=== PATIENT | male | born 1990 | race American Indian/Alaskan Native ===

== ENCOUNTER 2017-02-16 08:19 | Emergency (ER) | payer SELFPAY ==
[2017-02-16 09:11] LABS: Basophils % (Auto) 0.4 % (0.0-1.8); Eosinophils % (Auto) 0.7 % (0.0-4.3); Hematocrit 41.4 % (35.5-45.6); Hemoglobin 13.8 gm/dl (11.8-15.2); Mean Corpuscular HGB Conc 33 % (32-34); Mean Corpuscular Hemoglobin 30 pg (28-32); Mean Corpuscular Volume 89 fl (84-94); Platelet Count 194 K/mm3 (140-440); Red Blood Count 4.64 M/mm3 (3.65-5.03); Red Cell Distribution Width 13.7 % (13.2-15.2); White Blood Count 8.1 K/mm3 (4.5-11.0)
[2017-02-16 09:23] LABS: Alanine Aminotransferase 16 units/L (7-56); Albumin 4.1 g/dL (3.9-5); Albumin/Globulin Ratio 1.5 %; Alkaline Phosphatase 56 units/L (35-129); Anion Gap 17 mmol/L; BUN/Creatinine Ratio 10; Blood Urea Nitrogen 8 mg/dL (9-20); Calcium 9.2 mg/dL (8.4-10.2); Carbon Dioxide 24 mmol/L (22-30); Chloride 103.5 mmol/L (98-107); Glucose 91 mg/dL (75-100); Potassium 3.6 mmol/L (3.6-5.0); Sodium 141 mmol/L (137-145); Total Protein 6.9 g/dL (6.3-8.2)
--- NOTE | 2017-02-16 09:27 | Emergency Department Report ---
ED General Adult HPI - General Chief complaint: Chest Pain Stated complaint: CARDIAC ARRYTHMIA Time Seen by Provider: 02/16/17 09:17 Source: patient, EMS, RN notes reviewed Mode of arrival: Stretcher Limitations: No Limitations - History of Present Illness Initial comments: This is a 26-year-old male who was previously unknown to this provider. Patient reports a past medical history of ventricular tachycardia, wears a cardiac life asked, Recall the name of his medications. Patient is brought to the hospital by EMS for complaint of chest palpitations. Patient having frequent premature ventricular contractions as per EMS documentation. Patient denies headache, neck pain, chest pain, abdominal pain, shortness of breath, recent toxic ingestions. He further reports that his medications and life vest are in a hotel room. He does not have the ability to send someone to get his belongings. EKG has to go get his belongings. His symptoms do not have exacerbating or relieving factors. He indicates "I think I have V. tach." -: Gradual Consistency: intermittent Improves with: none Worsens with: none Associated Symptoms: denies: confusion, cough, diaphoresis, headaches, loss of appetite, malaise, nausea/vomiting, rash, shortness of breath, syncope, weakness - Related Data Allergies Allergy/AdvReac Type Severity Reaction Status Date / Time No Known Allergies Allergy Unverified 02/16/17 08:43 ED Review of Systems ROS: Stated complaint: CARDIAC ARRYTHMIA Other details as noted in HPI Constitutional: denies: fever Eyes: denies: eye discharge ENT: denies: epistaxis Respiratory: denies: cough Cardiovascular: palpitations Gastrointestinal: denies: vomiting Genitourinary: as per HPI Musculoskeletal: as per HPI Skin: as per HPI Neurological: as per HPI Psychiatric: as per HPI ED Past Medical Hx - Social History Smoking Status: Former Smoker Substance Use Type: None ED Physical Exam - General Limitations: No Limitations General appearance: alert, in no apparent distress, other (patient in no distress, testing and playing on a cellular phone) - Head Head exam: Present: atraumatic, normocephalic - Eye Eye exam: Present: normal appearance, EOMI, other (visual acuity intact to finger counting, color perception, reading at a close distance). Absent: nystagmus - ENT ENT exam: Present: normal exam, normal orophraynx, mucous membranes moist, normal external ear exam - Neck Neck exam: Present: normal inspection, full ROM - Respiratory Respiratory exam: Present: normal lung sounds bilaterally. Absent: respiratory distress - Cardiovascular Cardiovascular Exam: Present: regular rate, tachycardia, irregular rhythm, normal heart sounds. Absent: systolic murmur, diastolic murmur, rubs, gallop - GI/Abdominal GI/Abdominal exam: Present: soft, normal bowel sounds. Absent: distended, tenderness, guarding, rebound, rigid - Rectal Rectal exam: Present: deferred - Extremities Exam Extremities exam: Present: normal inspection, full ROM, normal capillary refill. Absent: pedal edema, joint swelling, calf tenderness - Back Exam Back exam: Present: normal inspection, full ROM. Absent: tenderness, CVA tenderness (R), paraspinal tenderness, vertebral tenderness - Neurological Exam Neurological exam: Present: alert, oriented X3, normal gait, other (Extraocular movements intact. Tongue midline. No facial droop. Facial sensation intact to light touch in the V1, V2, V3 distribution bilaterally. 5 and 5 strength in 4 extremities.. Sensation is intact to light touch in 4 extremities.). Absent : motor sensory deficit - Psychiatric Psychiatric exam: Present: normal affect, normal mood. Absent: anxious - Skin Skin exam: Present: warm, dry, intact, normal color. Absent: rash ED Course Vital Signs 02/16/17 02/16/17 02/16/17 08:31 08:38 08:45 Temperature 97.9 F Pulse Rate 88 67 64 Respiratory 8 L Rate Blood Pressure 134/87 139/89 O2 Sat by Pulse 99 100 Oximetry 02/16/17 02/16/17 02/16/17 09:01 09:15 09:21 Temperature Pulse Rate 59 L 125 H Respiratory 13 11 L 18 Rate Blood Pressure 142/90 139/93 O2 Sat by Pulse 100 99 99 Oximetry 02/16/17 02/16/17 09:31 09:45 Temperature Pulse Rate 73 122 H Respiratory 11 L 14 Rate Blood Pressure 139/93 134/96 O2 Sat by Pulse 99 99 Oximetry ED Medical Decision Making - Lab Data Result diagrams: 02/16/17 08:50 02/16/17 08:53 Vital Signs 02/16/17 02/16/17 08:38 09:21 Temperature 97.9 F Pulse Rate 67 Respiratory 18 Rate Blood Pressure 134/87 O2 Sat by Pulse 99 99 Oximetry Lab Results 02/16/17 02/16/17 Range/Units 08:50 08:53 WBC 8.1 (4.5-11.0) K/mm3 RBC 4.64 (3.65-5.03) M/mm3 Hgb 13.8 (11.8-15.2) gm/dl Hct 41.4 (35.5-45.6) % MCV 89 (84-94) fl MCH 30 (28-32) pg MCHC 33 (32-34) % RDW 13.7 (13.2-15.2) % Plt Count 194 (140-440) K/mm3 Lymph % (Auto) 26.5 (13.4-35.0) % [place] % (Auto) 7.2 (0.0-7.3) % Eos % (Auto) 0.7 (0.0-4.3) % Baso % (Auto) 0.4 (0.0-1.8) % Lymph # 2.2 (1.2-5.4) K/mm3 [place] # 0.6 (0.0-0.8) K/mm3 Eos # 0.1 (0.0-0.4) K/mm3 Baso # 0.0 (0.0-0.1) K/mm3 Seg Neutrophils % 65.2 (40.0-70.0) % Seg Neutrophils # 5.3 (1.8-7.7) K/mm3 Sodium 141 (137-145) mmol/L Potassium 3.6 (3.6-5.0) mmol/L Chloride 103.5 (98-107) mmol/L Carbon Dioxide 24 (22-30) mmol/L Anion Gap 17 mmol/L BUN 8 L (9-20) mg/dL Creatinine 0.8 (0.8-1.5) mg/dL Estimated GFR > 60 ml/min BUN/Creatinine Ratio 10 % Glucose 91 (75-100) mg/dL Calcium 9.2 (8.4-10.2) mg/dL Total Bilirubin 0.70 (0.1-1.2) mg/dL AST 15 (5-40) units/L ALT 16 (7-56) units/L Alkaline Phosphatase 56 (35-129) units/L Troponin T < 0.010 (0.00-0.029) ng/mL Total Protein 6.9 (6.3-8.2) g/dL Albumin 4.1 (3.9-5) g/dL Albumin/Globulin Ratio 1.5 % - EKG Data When compared to previous EKG there are: previous EKG unavailable 02/16/17 10:06 EKG demonstrates sinus, 65 bpm, intermittent groups of clustered premature ventricular contractions/nonsustained ventricular tachycardia. High left ventricular voltage, normal axis, numerous T-wave abnormalities, abnormal EKG, not morphologically consistent with ST elevation myocardial infarction - Medical Decision Making Differential diagnosis, including but not limited to: Structural cardiac disease , channelopathy, ventricular tachycardia, arrhythmia Assessment and plan: 26-year-old male with a complaint of palpitations, EKG that suggested nonsustained ventricular tachycardia. Extensive discussion had with patient. I strongly encouraged the patient to remain in the hospital for Medical management. The patient reports that he has to go to a hotel and brain picker his life pack and medications. He does not know the name of his medications. He can't recall what pharmacy he gets them from. The patient is alert and oriented 3, clinically sober, free from distracting injury, and exhibits decision-making capacity. The risks of leaving including , disability, paralysis were discussed extensively with the patient and he verbalized understanding. He signed out AGAINST MEDICAL ADVICE. He reported that he is going to go to a hotel, and then come right back to the emergency room. He does not have anyone who can brain picker his belongings. We offered to have local police go to his hotel and brain picker his belongings, but he refused that. This conversation is witnessed by city sanitarian Jennifer Vivas. Critical care attestation.: If time is entered above; I have spent that time in minutes in the direct care of this critically ill patient, excluding procedure time. ED Disposition Clinical Impression: Arrhythmia Disposition: [id number] LEFT AGAINST MED ADVICE Is pt being admited?: No Does the pt Need Aspirin: No Condition: Stable Instructions: Premature Ventricular Contractions (ED) Additional Instructions: As we discussed, you have left the hospital/emergency room AGAINST MEDICAL ADVICE. By leaving, you risked , disability, paralysis, permanent loss of quality of life. The ER is open 24 hours a day, 7 days a week. It never closes. Please return to the emergency room right away if and when you change your mind. If you decide not to return to the emergency room, please follow-up with the listed physician referrals as soon as possible. Referrals: PRIMARY CARE, [Primary Care Provider] - 3-5 Days [facility] [Provider Group] - 3-5 Days [facility] [Provider Group] - 3-5 Days
[2017-02-16 10:23] VITALS: BP 134/96
== END 2017-02-16 10:23 | disposition left against medical advice (07) ==
LOC: ED 08:19
DX: I49.9 Cardiac arrhythmia, unspecified (principal); Z87.891 Personal history of nicotine dependence
CPT/HCPCS: 36415; 80053; 83735; 84443; 84484; 85025; 93005; 93010; 99284